=== PATIENT | female | born 1980 | race Hispanic/Latino ===

== ENCOUNTER 2021-09-14 10:29 | Emergency (ER) | payer SELFPAY ==
[~2021-09-14] VITALS: Ht 154.9 cm; Wt 77.7 kg
[2021-09-14] MEDS ORDERED: Morphine 4mg Syringe 4 MG/ML INJ IM STA (10:57)
[2021-09-14] MEDS ORDERED: ONDANSETRON HCL 4 MG ORAL DISINTEGRATING TAB PO ONE (11:00)
[2021-09-14] MEDS ORDERED: ONDANSETRON ODT4 MG PO (11:03)
[2021-09-14] MEDS ORDERED: ACETAMINOPHEN-1 EAC4 PO (11:03)
[2021-09-14] MEDS ORDERED: FAMOTIDINE20 MG PO (11:03)
[2021-09-14] MEDS ORDERED: ONDANSETRON HCL 4 MG ORAL DISINTEGRATING TAB ONE (11:12)
[2021-09-14] MEDS ORDERED: Morphine 4mg Syringe 4 MG/ML INJ ONE (11:12)
== END 2021-09-14 11:20 | disposition home or self-care (01) ==
LOC: FSED 11:00
DX: R10.11 Right upper quadrant pain (principal); K80.80 Other cholelithiasis without obstruction; R11.2 Nausea with vomiting, unspecified; F17.210 Nicotine dependence, cigarettes, uncomplicated
CPT/HCPCS: 96372; 99283; J2270; Q0162